=== PATIENT | female | born 1960 ===

== ENCOUNTER 2020-08-19 09:00 | Inpatient (IN) | payer OTHER ==
[~2020-08-19] VITALS: Ht 165.1 cm; Wt 93.4 kg
[2020-08-19] MEDS ORDERED: TOPAMAX50 MG PO (13:52)
[2020-08-19] MEDS ORDERED: LYRICA PO (13:52)
[2020-08-19] MEDS ORDERED: TRANXE PO (13:53)
[2020-08-19] MEDS ORDERED: PREVACID30 MG PO (13:53)
[2020-08-19] MEDS ORDERED: TOPROL XL25 M1 PO (13:54)
[2020-08-19] MEDS ORDERED: CYMBALTA60 MG PO (13:54)
[2020-08-19] MEDS ORDERED: [UNRECOGNIZED DRUG - OTHER] PO (13:55)
[2020-08-19] MEDS ORDERED: PEPCID PO (13:55)
[2020-08-19] MEDS ORDERED: ZANAFLEX4 M1 PO (13:55)
[2020-08-19] MEDS ORDERED: NURTEC ODT75 MG PO (13:57)
[2020-08-19] MEDS ORDERED: EMBREL (13:57)
[2020-08-26] MEDS ORDERED: CLORAZEPATE D3.75 MG (07:55)
[2020-08-26] MEDS ORDERED: ENBREL50 MG/1 M1 (07:55)
[2020-08-26] MEDS ORDERED: PREGABALIN75 MG (07:55)
[2020-08-26] MEDS ORDERED: FAMOTIDINE40 MG (07:55)
[2020-08-26] MEDS ORDERED: [UNRECOGNIZED DRUG - OTHER] (07:56)
[2020-08-26] MEDS ORDERED: CLOTRIMAZOLE-BE15 G1 (07:56)
[2020-08-26] MEDS ORDERED: ANTACID LIQUID355 ML (07:56)
[2020-08-26] MEDS ORDERED: DEXAMETHAS0.5 MG/51 (07:56)
[2020-08-26] MEDS ORDERED: [UNRECOGNIZED DRUG - OTHER] (07:57)
[2020-08-26] MEDS ORDERED: ETODOLAC500 MG (07:57)
[2020-08-28] MEDS ORDERED: KETO10TA2 PO (08:15)
[2020-08-28] MEDS ORDERED: NEURONTIN300 MG PO (08:16)
[2020-08-28] MEDS ORDERED: OXYC1TAB9 PO (08:18)
[2020-08-28] MEDS ORDERED: ANALPRAM HC 2.530 GM RECTAL (08:20)
== END 2020-08-28 10:47 | disposition home or self-care (01) | DRG 761 ==
LOC: O/R 08-26 06:40 → SURH 08-26 06:40 → O/R 08-26 09:00 → SURG 08-26 11:24 → O/R 08-26 13:45 → SURH 08-26 14:07
PROVIDERS: ADMIT Surgery; ATTEND Surgery
PROC: 0UQG7ZZ Repair Vagina, Via Natural or Artificial Opening (ICD-10-PCS; principal; 2020-08-26 13:45)
DX: N81.6 Rectocele (principal); K64.1 Second degree hemorrhoids; K59.02 Outlet dysfunction constipation